=== PATIENT | male | born 1955 | race Caucasian/White ===

== ENCOUNTER 2024-12-13 06:08 | Inpatient (IN) | payer OTHER, MEDICARE ==
[2024-12-13] MEDS ORDERED: VANCOMYCIN 1,000 MG VIAL (RESTRICTED TO ID ONLY) ONE (07:22)
[2024-12-13] MEDS ORDERED: TRANEXAMIC ACID 1000 MG/10 ML VIAL ONE ×3 (07:22→15:06)
[2024-12-13] MEDS ORDERED: FENTANYL CITRATE/PF 50 MCG/ML VIAL ONE (07:23)
[2024-12-13] MEDS ORDERED: MIDAZOLAM HCL 2 MG/2 ML SINGLE DOSE VIAL ONE (07:23)
[2024-12-13] MEDS ORDERED: ROPIVACAINE HCL/PF 100 MG/20 ML VIAL ONE (07:25)
[2024-12-13 07:38] LABS: ABSOLUTE IMMATURE GRANULOCYTES 0.03 x10^3/uL (0.0-0.031); BASOPHILS # 0.07 x10^3/uL (0.01-0.08); EOSINOPHIL % 7.3 % (0.8-7.0); EOSINOPHILS # 0.45 x10^3/uL (0.04-0.54); HEMATOCRIT 40.6 % (40.1-51.0); HEMOGLOBIN 13.3 g/dL (13.7-17.5); MCHC 32.8 g/dl (32.3-36.5); MEAN CELL VOLUME 88.5 fl (79.0-92.2); MEAN PLT VOLUME 11.4 fl (9.4-12.4); MONOCYTE # 0.58 x10^3/uL (0.30-0.82); MONOCYTE % 9.5 % (5.3-12.2); PLATELET COUNT 200 x10^3/uL (163-337); RDW 14.1 % (12.2-16.4)
[2024-12-13] MEDS ORDERED: ROCURONIUM BROMIDE 50 MG/5 ML SYRINGE ONE ×5 (07:56→14:32)
[2024-12-13] MEDS ORDERED: ETOMIDATE 20 MG/10 ML VIAL IVPUSH ONE (07:56)
[2024-12-13] MEDS ORDERED: SUCCINYLCHOLINE CHLORIDE 200 MG/10 ML SYRINGE ONE (07:56)
[2024-12-13] MEDS ORDERED: BACITRACIN ZINC 15 GM TUBE TOPICAL OINTMENT ONE (08:42)
[2024-12-13 08:45] LABS: ALBUMIN 3.7 g/dl (3.4-5.0); ALK PHOS 73 U/L (45-117); ANION GAP 9 mmol/L (4-13); BILIRUBIN,TOTAL 0.4 mg/dl (0.2-1); CHLORIDE 102 mmol/L (98-107); CO2 31 mmol/L (21-32); GLUCOSE,RANDOM 78 mg/dl (74-106); POTASSIUM 3.4 mmol/L (3.5-5.1); SGOT/AST 14 U/L (15-37); SGPT/ALT 13 U/L (7-52); SODIUM 142 mmol/L (136-145); TOT PROT 5.6 g/dl (6.4-8.2)
[2024-12-13 08:50] LABS: ERYTHROCYTE SEDIMENTATION RATE 11 mm/hr (0-20)
[2024-12-13] MEDS ORDERED: oxyCODONE HCL 5 MG TABLET PO PRN ×3 (09:57→18:25)
[2024-12-13] MEDS ORDERED: ONDANSETRON 4 MG/2 ML VIAL IVPUSH PRN ×3 (09:57→18:25)
[2024-12-13] MEDS ORDERED: CLINDAMYCIN PHOSPHATE 600 MG/4 ML VIAL ONE (12:15)
[2024-12-13] MEDS ORDERED: PHENYLEPHRINE HCL 10 MG/1 ML SINGLE DOSE VIAL ONE (12:24)
[2024-12-13] MEDS ORDERED: SUGAMMADEX SODIUM 200 MG/2 ML VIAL ONE ×2 (12:45→16:11)
[2024-12-13] MEDS ORDERED: SEVOFLURANE 250 ML BTL ONE (12:50)
[2024-12-13] MEDS ORDERED: DEXAMETHASONE SOD PHOSPHATE 4 MG/1 ML VIAL ONE (13:08)
[2024-12-13] MEDS ORDERED: ONDANSETRON 4 MG/2 ML VIAL ONE (14:57)
[2024-12-13] MEDS ORDERED: CALCIUM CHLORIDE 1 GM/10 ML *DISP.SYRIN ONE (15:13)
[2024-12-13] MEDS ORDERED: PROPOFOL 20 ML ONE (15:37)
[2024-12-13] MEDS ORDERED: MAG HYDROX/AL HYDROX/SIMETH 30 ML UNIT-DOSE CUP PO PRN ×2 (16:42→18:25)
[2024-12-13] MEDS ORDERED: LACTATED RINGERS SOLUTION 1,000 ML IV SCH (16:45)
[2024-12-13] MEDS ORDERED: ACETAMINOPHEN 1000 MG/100 ML BAG IVPB SCH (17:15)
[2024-12-13 17:54] LABS: ALBUMIN 2.5 g/dl (3.4-5.0); BILIRUBIN,TOTAL 0.3 mg/dl (0.2-1); CALCIUM 8.4 mg/dl (8.5-10.1); CREATININE 0.9 mg/dl (0.6-1.3); HEMATOCRIT 32.8 % (40.1-51.0); HEMOGLOBIN 10.6 g/dL (13.7-17.5); MCHC 32.3 g/dl (32.3-36.5); MEAN CELL VOLUME 90.4 fl (79.0-92.2); MEAN PLT VOLUME 11.5 fl (9.4-12.4); PLATELET COUNT 248 x10^3/uL (163-337); POTASSIUM 4.1 mmol/L (3.5-5.1); RDW 14.3 % (12.2-16.4); TOT PROT 3.9 g/dl (6.4-8.2)
[2024-12-13] MEDS ORDERED: PHENYLEPHRINE NS PREMIX 50,000 MCG/500 ML BAG IVPB SCH (18:30)
[2024-12-13] MEDS: NOREPINEPHRINE 0.9 % NACL 8 MG/250 ML BAG IVPB SCH (19:55)
[2024-12-13] MEDS: LACTATED RINGERS SOLUTION 1,000 ML IV SCH (19:55)
[2024-12-13] MEDS: oxyCODONE HCL 5 MG TABLET PO PRN (20:28)
[2024-12-13] MEDS ORDERED: CLINDAMYCIN 600MG PREMIX IVPB 600 MG/50 ML BAG IVPB SCH (21:00)
[2024-12-13] MEDS ORDERED: CLINDAMYCIN 900 MG PREMIX IVPB 900 MG/50 ML BAG IVPB SCH (21:00)
[2024-12-13] MEDS: CHLORHEXIDINE GLUCONATE 4% CLEANSER FOR DECOLONIZATION TP SCH (21:55)
[2024-12-13] MEDS: CLINDAMYCIN 900 MG PREMIX IVPB 900 MG/50 ML BAG IVPB SCH (21:55)
[2024-12-13] MEDS: MUPIROCIN 2% TOPICAL OINTMENT FOR DECOLONIZATION NS SCH (21:55)
[2024-12-13] MEDS: SENNOSIDES/DOCUSATE COMBO (SENNA PLUS) TABLET (UD) PO SCH (21:56)
[2024-12-13] MEDS ORDERED: SENNOSIDES/DOCUSATE COMBO (SENNA PLUS) TABLET (UD) PO SCH (22:00)
[2024-12-14] MEDS: ACETAMINOPHEN 1000 MG/100 ML BAG IVPB SCH (00:10)
[2024-12-14 02:38] VITALS: BMI 36.0
[2024-12-14] MEDS: MIDODRINE HCL 5 MG TABLET PO SCH (05:58)
[2024-12-14 06:45] LABS: HEMATOCRIT 30.8 % (40.1-51.0); HEMOGLOBIN 9.8 g/dL (13.7-17.5); MCHC 31.8 g/dl (32.3-36.5); PLATELET COUNT 204 x10^3/uL (163-337); RDW 14.3 % (12.2-16.4)
[2024-12-14] MEDS: PHENYLEPHRINE HCL 10 MG/1 ML SINGLE DOSE VIAL ONE (06:54)
[2024-12-14 07:16] LABS: BLOOD UREA NITROGEN 17.7 mg/dL (7-18); CALCIUM 8.7 mg/dL (8.5-10.1)
[2024-12-14 07:20] LABS: CREATININE 0.9 mg/dL (0.55-1.3)
[2024-12-14 07:24] LABS: LACTIC ACID 3.2 mmol/L (0.4-2.0)
[2024-12-14] MEDS: LACTATED RINGERS SOLUTION 1,000 ML/1,000 ML INFUS.BAG IV SCH (08:21)
[2024-12-14 08:25] LABS: ALBUMIN 2.4 g/dl (3.4-5.0)
[2024-12-14 08:30] LABS: BILIRUBIN,TOTAL 0.3 mg/dL (0.2-1); TOT PROT 4.6 g/dl (6.4-8.2)
[2024-12-14] MEDS: PANTOPRAZOLE 40 MG TABLET PO SCH (09:30)
[2024-12-14] MEDS: DULoxetine HCL 20 MG CAPSULE.DR PO SCH (09:30)
[2024-12-14] MEDS: BACITRACIN ZINC 15 GM TUBE TOPICAL OINTMENT TP SCH (09:30)
[2024-12-14] MEDS: MULTIVITAMINS (DAILY MVI) TABLET (FP) PO SCH (09:30)
[2024-12-14] MEDS: PREGABALIN 100 MG CAPSULE PO ONE (09:47)
[2024-12-14] MEDS ORDERED: ASPIRIN 325 MG TABLET PO SCH ×2 (10:00)
[2024-12-14] MEDS ORDERED: PANTOPRAZOLE 40 MG TABLET PO SCH (10:00)
[2024-12-14] MEDS ORDERED: MULTIVITAMINS (DAILY MVI) TABLET (FP) PO SCH (10:00)
[2024-12-14 12:30] LABS: LACTIC ACID 3.8 mmol/L (0.4-2.0)
[2024-12-14] MEDS: TAMSULOSIN HCL 0.4 MG CAP PO SCH (13:34)
[2024-12-14] MEDS: PREGABALIN 100 MG CAPSULE PO SCH (15:35)
[2024-12-14] MEDS ORDERED: ACETAMINOPHEN 1000 MG/100 ML BAG IVPB PRN (19:51)
[2024-12-14 21:23] LABS: LACTIC ACID 2.5 mmol/L (0.4-2.0)
[2024-12-14] MEDS: oxyCODONE HCL 5 MG TABLET PO PRN (22:11)
[2024-12-15] MEDS: HYDROmorphone HCL CARPU-JECT 2 MG/1 ML DISP.SYRIN IVPUSH PRN ×2 (01:44→13:26)
[2024-12-15 06:39] LABS: ABSOLUTE IMMATURE GRANULOCYTES 0.08 x10^3/uL (0.0-0.031); BASOPHILS # 0.02 x10^3/uL (0.01-0.08); EOSINOPHIL % 0.6 % (0.8-7.0); EOSINOPHILS # 0.07 x10^3/uL (0.04-0.54); HEMOGLOBIN 7.4 g/dL (13.7-17.5); MCHC 32.2 g/dl (32.3-36.5); MEAN CELL VOLUME 89.1 fl (79.0-92.2); MEAN PLT VOLUME 11.5 fl (9.4-12.4); PLATELET COUNT 155 x10^3/uL (163-337); RDW 14.5 % (12.2-16.4)
[2024-12-15 07:04] LABS: POTASSIUM 3.8 mmol/L (3.5-5.1)
[2024-12-15 07:10] LABS: ALBUMIN 2.1 g/dl (3.4-5.0); BLOOD UREA NITROGEN 16.3 mg/dL (7-18); CALCIUM 7.9 mg/dL (8.5-10.1)
[2024-12-15 07:12] LABS: MAGNESIUM 1.3 mg/dL (1.8-2.4)
[2024-12-15 07:13] LABS: BILIRUBIN,TOTAL 0.3 mg/dL (0.2-1); CREATININE 0.8 mg/dL (0.55-1.3); TOT PROT 4.1 g/dl (6.4-8.2)
[2024-12-15 07:15] LABS: PHOSPHOROUS 2.7 mg/dL (2.5-4.9)
[2024-12-15] MEDS: CLINDAMYCIN 900 MG PREMIX IVPB 900 MG/50 ML BAG IVPB SCH ×2 (09:26→18:46)
[2024-12-15] MEDS ORDERED: ASPIRIN 325 MG ENTERIC COATED TABLET (FP) PO SCH (10:00)
[2024-12-15] MEDS ORDERED: CLINDAMYCIN 900 MG PREMIX IVPB 900 MG/50 ML BAG IVPB SCH (10:00)
[2024-12-15] MEDS ORDERED: MAG HYDROX/AL HYDROX/SIMETH 30 ML UNIT-DOSE CUP PO PRN (12:31)
[2024-12-15] MEDS ORDERED: ACETAMINOPHEN 1000 MG/100 ML BAG IVPB PRN (12:31)
[2024-12-15] MEDS ORDERED: ONDANSETRON 4 MG/2 ML VIAL IVPUSH PRN (12:31)
[2024-12-15] MEDS: LACTATED RINGERS SOLUTION 1,000 ML/1,000 ML INFUS.BAG IV SCH (13:11)
[2024-12-15] MEDS: MAGNESIUM 2GM/50ML STERILE WATER IVPB IVPB ONE (13:12)
[2024-12-15] MEDS: oxyCODONE HCL 5 MG TABLET PO PRN (16:30)
[2024-12-15] MEDS: PREGABALIN 100 MG CAPSULE PO SCH (16:31)
[2024-12-15] MEDS: MIDODRINE HCL 5 MG TABLET PO SCH (16:31)
[2024-12-15] MEDS: SENNOSIDES/DOCUSATE COMBO (SENNA PLUS) TABLET (UD) PO SCH (21:22)
[2024-12-15] MEDS: DULoxetine HCL 20 MG CAPSULE.DR PO SCH (21:22)
[2024-12-15] MEDS: TAMSULOSIN HCL 0.4 MG CAP PO SCH (21:22)
[2024-12-15] MEDS: ACETAMINOPHEN 325 MG TABLET (FP) PO ONE (21:23)
[2024-12-15] MEDS ORDERED: CHLORHEXIDINE GLUCONATE 4% CLEANSER FOR DECOLONIZATION TP SCH (22:00)
[2024-12-15 23:42] LABS: POTASSIUM 3.7 mmol/L (3.5-5.1)
[2024-12-15 23:44] LABS: CALCIUM 8.1 mg/dL (8.5-10.1)
[2024-12-15 23:48] LABS: CREATININE 0.8 mg/dL (0.55-1.3)
[2024-12-15 23:49] LABS: BILIRUBIN,TOTAL 0.4 mg/dL (0.2-1)
[2024-12-16 01:32] LABS: URINE APPEARANCE CLEAR; URINE BILIRUBIN NEGATIVE (NEGATIVE); URINE COLOR YELLOW; URINE GLUCOSE (UA) NEGATIVE (NEGATIVE); URINE KETONE NEGATIVE (NEGATIVE); URINE LEUK ESTERASE NEGATIVE (NEGATIVE); URINE NITRITE NEGATIVE (NEGATIVE); URINE PROTEIN NEGATIVE (NEGATIVE); URINE UROBILINOGEN 0.2 mg/dL (0.2-1.0)
[2024-12-16] MEDS ORDERED: ACETAMINOPHEN 325 MG TABLET (FP) PO SCH (07:30)
[2024-12-16] MEDS: ACETAMINOPHEN 325 MG TABLET (FP) PO SCH (07:58)
[2024-12-16 08:10] LABS: ABSOLUTE IMMATURE GRANULOCYTES 0.07 x10^3/uL (0.0-0.031); BASOPHILS # 0.04 x10^3/uL (0.01-0.08); EOSINOPHIL % 1.9 % (0.8-7.0); EOSINOPHILS # 0.15 x10^3/uL (0.04-0.54); HEMATOCRIT 22.2 % (40.1-51.0); HEMOGLOBIN 7.3 g/dL (13.7-17.5); MCHC 32.9 g/dl (32.3-36.5); MEAN CELL VOLUME 85.4 fl (79.0-92.2); MEAN PLT VOLUME 11.6 fl (9.4-12.4); MONOCYTE % 12.7 % (5.3-12.2); PLATELET COUNT 149 x10^3/uL (163-337); RDW 15.6 % (12.2-16.4)
[2024-12-16 08:29] LABS: POTASSIUM 3.7 mmol/L (3.5-5.1)
[2024-12-16 08:30] LABS: CALCIUM 7.9 mg/dL (8.5-10.1)
[2024-12-16] MEDS ORDERED: ACETAMINOPHEN 500 MG TABLET (FP) PO SCH (08:30)
[2024-12-16 08:31] LABS: BLOOD UREA NITROGEN 18.2 mg/dL (7-18)
[2024-12-16 08:36] LABS: CREATININE 0.7 mg/dL (0.55-1.3)
[2024-12-16] MEDS: BACITRACIN ZINC 15 GM TUBE TOPICAL OINTMENT TP SCH (09:58)
[2024-12-16] MEDS: ASPIRIN 325 MG ENTERIC COATED TABLET (FP) PO SCH (09:58)
[2024-12-16] MEDS: MULTIVITAMINS (DAILY MVI) TABLET (FP) PO SCH (09:59)
[2024-12-16] MEDS: PANTOPRAZOLE 40 MG TABLET PO SCH (09:59)
[2024-12-16 15:10] LABS: HEMATOCRIT 23.4 % (40.1-51.0); HEMOGLOBIN 7.7 g/dL (13.7-17.5); MCHC 32.9 g/dl (32.3-36.5); MEAN CELL VOLUME 85.7 fl (79.0-92.2); MEAN PLT VOLUME 11.3 fl (9.4-12.4); PLATELET COUNT 164 x10^3/uL (163-337); RDW 15.6 % (12.2-16.4)
[2024-12-16] MEDS: ACETAMINOPHEN 500 MG TABLET (FP) PO SCH (17:01)
[2024-12-16] MEDS: MIDODRINE HCL 5 MG TABLET PO SCH (18:09)
[2024-12-16] MEDS: ATORVASTATIN CA 40 MG TABLET (FP) PO SCH (21:18)
[2024-12-16] MEDS: DULoxetine HCL 30 MG CAPSULE.DR PO SCH (21:18)
[2024-12-16 21:20] VITALS: RESP 18
[2024-12-17] MEDS: MELATONIN 5 MG TABLETS PO PRN (03:37)
[2024-12-17 08:35] LABS: HEMATOCRIT 21.6 % (40.1-51.0); MCHC 32.4 g/dl (32.3-36.5); MEAN CELL VOLUME 86.1 fl (79.0-92.2); MEAN PLT VOLUME 11.3 fl (9.4-12.4); PLATELET COUNT 180 x10^3/uL (163-337); RDW 15.3 % (12.2-16.4)
[2024-12-17 09:01] LABS: POTASSIUM 3.4 mmol/L (3.5-5.1)
[2024-12-17] MEDS: MIDODRINE HCL 5 MG TABLET PO SCH (09:05)
[2024-12-17 09:14] LABS: ALBUMIN 1.9 g/dl (3.4-5.0)
[2024-12-17 09:16] LABS: CREATININE 0.7 mg/dL (0.55-1.3); PHOSPHOROUS 3.2 mg/dL (2.5-4.9)
[2024-12-17 09:20] LABS: BILIRUBIN,TOTAL 0.4 mg/dL (0.2-1); TOT PROT 4.1 g/dl (6.4-8.2)
[2024-12-17] MEDS: POTASSIUM CHLORIDE ORAL LIQUID 20 MEQ/15 ML PO ONE (13:16)
[2024-12-17] MEDS ORDERED: MAGNESIUM CITRATE 300 ML BOTTLE PO ONE (15:06)
[2024-12-17 16:40] LABS: HEMATOCRIT 23.3 % (40.1-51.0); HEMOGLOBIN 7.4 g/dL (13.7-17.5); MCHC 31.8 g/dl (32.3-36.5); MEAN CELL VOLUME 88.9 fl (79.0-92.2); MEAN PLT VOLUME 10.9 fl (9.4-12.4); PLATELET COUNT 208 x10^3/uL (163-337); RDW 15.1 % (12.2-16.4)
[2024-12-17] MEDS: MAGNESIUM CITRATE 300 ML BOTTLE PO ONE (17:11)
[2024-12-17] MEDS: hydrOXYzine PAMOATE 25 MG CAPSULE (FP) PO ONE (23:28)
[2024-12-18 08:34] LABS: HEMATOCRIT 25.2 % (40.1-51.0); HEMOGLOBIN 8.4 g/dL (13.7-17.5); MCHC 33.3 g/dl (32.3-36.5); MEAN CELL VOLUME 85.4 fl (79.0-92.2); MEAN PLT VOLUME 11.1 fl (9.4-12.4); PLATELET COUNT 231 x10^3/uL (163-337)
[2024-12-18 08:52] LABS: POTASSIUM 4.1 mmol/L (3.5-5.1)
[2024-12-18 08:55] LABS: ALBUMIN 2.1 g/dl (3.4-5.0); BLOOD UREA NITROGEN 16.8 mg/dL (7-18)
[2024-12-18 08:58] LABS: CREATININE 0.6 mg/dL (0.55-1.3)
[2024-12-18 08:59] LABS: BILIRUBIN,TOTAL 0.5 mg/dL (0.2-1)
[2024-12-18 09:00] LABS: TOT PROT 4.4 g/dl (6.4-8.2)
[2024-12-18 09:02] VITALS: BP 148/79; PULSE 76; TEMP 98.8
== END 2024-12-18 14:50 | DRG 483 ==
LOC: FASUSAT 06:08 → JICU 18:09 → J6S 12-15 12:17
PROVIDERS: ADMIT Internal Medicine Pulmonary Disease; ATTEND Internal Medicine
PROC: 0RPJ0J6 Removal of Synthetic Substitute from Right Shoulder Joint, Humeral Surface, Open Approach (ICD-10-PCS; 2024-12-13)
PROC: 0RRJ00Z Replacement of Right Shoulder Joint with Reverse Ball and Socket Synthetic Substitute, Open Approach (ICD-10-PCS; principal; 2024-12-13 09:33)
PROC: 30233N1 Transfusion of Nonautologous Red Blood Cells into Peripheral Vein, Percutaneous Approach (ICD-10-PCS; 2024-12-15)
PROC: 02HV33Z Insertion of Infusion Device into Superior Vena Cava, Percutaneous Approach (ICD-10-PCS; 2024-12-17)
PROC: B518ZZA Fluoroscopy of Superior Vena Cava, Guidance (ICD-10-PCS; 2024-12-17)
DX: S42.291K Other displaced fracture of upper end of right humerus, subsequent encounter for fracture with nonunion (principal); T81.19XA Other postprocedural shock, initial encounter; D62 Acute posthemorrhagic anemia; F11.20 Opioid dependence, uncomplicated; E87.20 Acidosis, unspecified; M19.011 Primary osteoarthritis, right shoulder; I95.81 Postprocedural hypotension; E66.9 Obesity, unspecified; Z68.36 Body mass index [BMI] 36.0-36.9, adult; N40.1 Benign prostatic hyperplasia with lower urinary tract symptoms; R33.8 Other retention of urine; I10 Essential (primary) hypertension; X58.XXXD Exposure to other specified factors, subsequent encounter; Z96.652 Presence of left artificial knee joint; Y83.8 Other surgical procedures as the cause of abnormal reaction of the patient, or of later complication, without mention of misadventure at the time of the procedure; D69.6 Thrombocytopenia, unspecified; R50.9 Fever, unspecified
CPT/HCPCS: 0241U-QW; 36415; 36430; 36569; 73030-TC-RT-FY; 80048; 80053; 81003; 83010; 83605; 83735; 84100; 85025; 85027; 85651; 86078; 86140; 86850; 86900; 86901; 86922; 87040; 87070; 87075; 87205; 88300-TC; 88304-TC; 88331-TC; 94760; 97116-GP; 97163-GP; C1713; C1776; J0131; J0878; P9058

== ENCOUNTER 2024-12-22 11:57 | Inpatient (IN) | payer OTHER, MEDICARE ==
[2024-12-22 13:36] LABS: ABSOLUTE IMMATURE GRANULOCYTES 0.21 x10^3/uL (0.0-0.031); BASOPHILS # 0.07 x10^3/uL (0.01-0.08); EOSINOPHILS # 0.58 x10^3/uL (0.04-0.54); HEMATOCRIT 27.4 % (40.1-51.0); HEMOGLOBIN 8.8 g/dL (13.7-17.5); INR 1.1 (0.83-1.09); MCHC 32.1 g/dl (32.3-36.5); MEAN CELL VOLUME 88.1 fl (79.0-92.2); MEAN PLT VOLUME 9.8 fl (9.4-12.4); MONOCYTE # 0.79 x10^3/uL (0.30-0.82); MONOCYTE % 8.2 % (5.3-12.2); PLATELET COUNT 380 x10^3/uL (163-337); PROTHROMBIN TIME (PATIENT) 12.2 SEC (9.7-13.0); RDW 14.9 % (12.2-16.4)
[2024-12-22 13:46] LABS: ALBUMIN 3.2 g/dl (3.4-5.0); BILIRUBIN,TOTAL 0.4 mg/dl (0.2-1); CALCIUM 8.6 mg/dl (8.5-10.1); CREATININE 0.8 mg/dl (0.6-1.3); POTASSIUM 4.1 mmol/L (3.5-5.1); TOT PROT 5.1 g/dl (6.4-8.2)
[2024-12-22 17:40] VITALS: BMI 40.0
[2024-12-22] MEDS ORDERED: CLINDAMYCIN 900 MG PREMIX IVPB 900 MG/50 ML BAG IVPB SCH (21:30)
[2024-12-22] MEDS: oxyCODONE HCL 5 MG TABLET PO PRN (21:36)
[2024-12-22] MEDS: DULoxetine HCL 30 MG CAPSULE.DR PO SCH (22:50)
[2024-12-22] MEDS: PREGABALIN 100 MG CAPSULE PO SCH (22:50)
[2024-12-22] MEDS: ACETAMINOPHEN 500 MG TABLET (FP) PO SCH (22:50)
[2024-12-22] MEDS: ATORVASTATIN CA 40 MG TABLET (FP) PO SCH (22:50)
[2024-12-22] MEDS: ZOLPIDEM TARTRATE 5 MG TABLET PO PRN (22:51)
[2024-12-23] MEDS: CLINDAMYCIN 900 MG PREMIX IVPB 900 MG/50 ML BAG IVPB SCH (01:13)
[2024-12-23 07:49] LABS: ABSOLUTE IMMATURE GRANULOCYTES 0.12 x10^3/uL (0.0-0.031); BASOPHILS # 0.07 x10^3/uL (0.01-0.08); EOSINOPHIL % 7.7 % (0.8-7.0); EOSINOPHILS # 0.57 x10^3/uL (0.04-0.54); HEMATOCRIT 25.7 % (40.1-51.0); HEMOGLOBIN 8.2 g/dL (13.7-17.5); MCHC 31.9 g/dl (32.3-36.5); MEAN CELL VOLUME 88.9 fl (79.0-92.2); MEAN PLT VOLUME 9.7 fl (9.4-12.4); MONOCYTE # 0.73 x10^3/uL (0.30-0.82); MONOCYTE % 9.8 % (5.3-12.2); PLATELET COUNT 377 x10^3/uL (163-337); RDW 14.9 % (12.2-16.4)
[2024-12-23 08:35] LABS: CALCIUM 8.3 mg/dl (8.5-10.1); CREATININE 0.9 mg/dl (0.6-1.3); POTASSIUM 3.8 mmol/L (3.5-5.1)
[2024-12-23] MEDS: POTASSIUM CHLORIDE TABS 10 MEQ TABLET.ER (FP) PO SCH (10:08)
[2024-12-23] MEDS: FUROSEMIDE 40 MG TABLET (FP) PO SCH (10:08)
[2024-12-23] MEDS: SODIUM CHLORIDE 1,000 ML IV SCH (23:25)
[2024-12-24] MEDS: CLINDAMYCIN 900 MG PREMIX IVPB 900 MG/50 ML BAG IVPB ONE (02:19)
[2024-12-24 07:42] LABS: HEMATOCRIT 28.1 % (40.1-51.0); MEAN CELL VOLUME 88.9 fl (79.0-92.2); MEAN PLT VOLUME 9.7 fl (9.4-12.4); PLATELET COUNT 397 x10^3/uL (163-337); RDW 15.3 % (12.2-16.4)
[2024-12-24] MEDS ORDERED: VANCOMYCIN 1,000 MG VIAL (RESTRICTED TO ID ONLY) ONE (08:36)
[2024-12-24] MEDS ORDERED: TRANEXAMIC ACID 1000 MG/10 ML VIAL ONE ×2 (08:36→14:38)
[2024-12-24] MEDS ORDERED: EPINEPHrine 1:1,000 1,000 MCG/ML ML ONE (08:36)
[2024-12-24 10:07] LABS: BILIRUBIN,TOTAL 0.4 mg/dl (0.2-1); CALCIUM 8.5 mg/dl (8.5-10.1); CREATININE 0.9 mg/dl (0.6-1.3); POTASSIUM 3.9 mmol/L (3.5-5.1); TOT PROT 4.7 g/dl (6.4-8.2)
[2024-12-24] MEDS ORDERED: SEVOFLURANE 250 ML BTL ONE (10:32)
[2024-12-24] MEDS ORDERED: PROPOFOL 40 ML ONE (10:32)
[2024-12-24] MEDS ORDERED: MIDAZOLAM HCL 2 MG/2 ML SINGLE DOSE VIAL ONE ×2 (10:32→11:59)
[2024-12-24] MEDS ORDERED: ROCURONIUM BROMIDE 50 MG/5 ML SYRINGE ONE ×2 (10:32→13:28)
[2024-12-24] MEDS ORDERED: DEXAMETHASONE SOD PHOSPHATE 4 MG/1 ML VIAL ONE ×2 (10:33→10:37)
[2024-12-24] MEDS ORDERED: ONDANSETRON 4 MG/2 ML VIAL ONE (10:33)
[2024-12-24] MEDS ORDERED: ROPIVACAINE HCL/PF 100 MG/20 ML VIAL ONE ×2 (10:39→11:24)
[2024-12-24] MEDS ORDERED: CLINDAMYCIN PHOSPHATE 600 MG/4 ML VIAL ONE ×2 (12:04→12:05)
[2024-12-24] MEDS ORDERED: PHENYLEPHRINE HCL 10 MG/1 ML SINGLE DOSE VIAL ONE (12:26)
[2024-12-24 14:41] LABS: INR 1.12 (0.83-1.09); PROTHROMBIN TIME (PATIENT) 12.4 SEC (9.7-13.0)
[2024-12-24 14:56] LABS: HEMATOCRIT 33.4 % (40.1-51.0); HEMOGLOBIN 10.8 g/dL (13.7-17.5); MCHC 32.3 g/dl (32.3-36.5); MEAN PLT VOLUME 9.8 fl (9.4-12.4); PLATELET COUNT 400 x10^3/uL (163-337); RDW 15.1 % (12.2-16.4)
[2024-12-24] MEDS ORDERED: SUGAMMADEX SODIUM 200 MG/2 ML VIAL ONE (15:43)
[2024-12-24] MEDS ORDERED: ONDANSETRON 4 MG/2 ML VIAL IVPUSH PRN (16:11)
[2024-12-24] MEDS ORDERED: PROMETHAZINE HCL 25 MG/1 ML VIAL IVPB PRN (16:11)
[2024-12-24] MEDS ORDERED: oxyCODONE HCL 5 MG TABLET PO PRN (16:11)
[2024-12-24] MEDS ORDERED: ACETAMINOPHEN INJECTION 100 ML ONE (16:21)
[2024-12-24] MEDS: ACETAMINOPHEN 500 MG TABLET (FP) PO SCH (16:40)
[2024-12-24] MEDS: LACTATED RINGERS SOLUTION 1,000 ML IV SCH (16:40)
[2024-12-24] MEDS ORDERED: CLINDAMYCIN 900 MG IV SCH (18:00)
[2024-12-24] MEDS ORDERED: PATIENT'S OWN MEDICATION (NON-FORMULARY) (Oxycodone Hcl [Oxycodone Hcl] 10 MG Tablet) PO SCH (18:00)
[2024-12-24] MEDS: CLINDAMYCIN 900 MG PREMIX BAG IVPB SCH (18:27)
[2024-12-24] MEDS: oxyCODONE HCL 5 MG TABLET PO PRN (20:25)
[2024-12-24 22:09] LABS: HEMATOCRIT 29.1 % (40.1-51.0); HEMOGLOBIN 9.6 g/dL (13.7-17.5); MEAN CELL VOLUME 86.4 fl (79.0-92.2); MEAN PLT VOLUME 9.7 fl (9.4-12.4); PLATELET COUNT 375 x10^3/uL (163-337); RDW 15.6 % (12.2-16.4)
[2024-12-24] MEDS: KETOROLAC TROMETHAMINE 30 MG/1 ML VIAL IVPUSH SCH (23:07)
[2024-12-25 08:21] LABS: ABSOLUTE IMMATURE GRANULOCYTES 0.38 x10^3/uL (0.0-0.031); BASOPHILS # 0.02 x10^3/uL (0.01-0.08); HEMATOCRIT 27.8 % (40.1-51.0); HEMOGLOBIN 9.3 g/dL (13.7-17.5); MCHC 33.5 g/dl (32.3-36.5); MEAN CELL VOLUME 86.1 fl (79.0-92.2); MONOCYTE # 0.94 x10^3/uL (0.30-0.82); MONOCYTE % 5.5 % (5.3-12.2); PLATELET COUNT 367 x10^3/uL (163-337); RDW 16.1 % (12.2-16.4)
[2024-12-25] MEDS: oxyCODONE HCL 5 MG TABLET PO PRN (08:37)
[2024-12-25 08:56] LABS: ALBUMIN 2.8 g/dl (3.4-5.0); BILIRUBIN,TOTAL 0.3 mg/dl (0.2-1); CALCIUM 8.2 mg/dl (8.5-10.1); CREATININE 1.1 mg/dl (0.6-1.3); POTASSIUM 4.4 mmol/L (3.5-5.1); TOT PROT 4.3 g/dl (6.4-8.2)
[2024-12-25] MEDS: ALLOPURINOL 100 MG TABLET (FP) PO SCH (09:28)
[2024-12-25] MEDS: ASPIRIN COATED 81 MG TABLET.EC PO SCH (09:29)
[2024-12-25] MEDS: ACETAMINOPHEN 1000 MG/100 ML BAG IVPB PRN (09:55)
[2024-12-26 09:32] LABS: ABSOLUTE IMMATURE GRANULOCYTES 0.42 x10^3/uL (0.0-0.031); BASOPHILS # 0.08 x10^3/uL (0.01-0.08); EOSINOPHIL % 4.4 % (0.8-7.0); EOSINOPHILS # 0.59 x10^3/uL (0.04-0.54); HEMOGLOBIN 9.6 g/dL (13.7-17.5); MEAN CELL VOLUME 86.2 fl (79.0-92.2); MEAN PLT VOLUME 9.5 fl (9.4-12.4); MONOCYTE # 1.11 x10^3/uL (0.30-0.82); MONOCYTE % 8.3 % (5.3-12.2); PLATELET COUNT 378 x10^3/uL (163-337); RDW 16.9 % (12.2-16.4)
[2024-12-26 09:45] LABS: CALCIUM 8.2 mg/dl (8.5-10.1); POTASSIUM 3.7 mmol/L (3.5-5.1)
[2024-12-27 07:53] LABS: HEMATOCRIT 30.3 % (40.1-51.0); HEMOGLOBIN 9.8 g/dL (13.7-17.5); MCHC 32.3 g/dl (32.3-36.5); MEAN CELL VOLUME 88.1 fl (79.0-92.2); MEAN PLT VOLUME 9.6 fl (9.4-12.4); PLATELET COUNT 371 x10^3/uL (163-337); RDW 16.4 % (12.2-16.4)
[2024-12-27 09:59] LABS: ALBUMIN 3.3 g/dl (3.4-5.0); BILIRUBIN,TOTAL 0.4 mg/dl (0.2-1); CALCIUM 8.3 mg/dl (8.5-10.1); POTASSIUM 3.9 mmol/L (3.5-5.1)
[2024-12-27] MEDS: FUROSEMIDE 40 MG/4 ML INJECTABLE VIAL IVPUSH ONE (16:09)
[2024-12-28 06:42] VITALS: PULSE 72; RESP 18
[2024-12-28 08:05] LABS: ABSOLUTE IMMATURE GRANULOCYTES 0.29 x10^3/uL (0.0-0.031); BASOPHILS # 0.07 x10^3/uL (0.01-0.08); EOSINOPHIL % 6.9 % (0.8-7.0); EOSINOPHILS # 0.64 x10^3/uL (0.04-0.54); HEMATOCRIT 29.5 % (40.1-51.0); HEMOGLOBIN 9.4 g/dL (13.7-17.5); MCHC 31.9 g/dl (32.3-36.5); MEAN CELL VOLUME 88.9 fl (79.0-92.2); MEAN PLT VOLUME 9.9 fl (9.4-12.4); MONOCYTE # 0.81 x10^3/uL (0.30-0.82); MONOCYTE % 8.8 % (5.3-12.2); PLATELET COUNT 361 x10^3/uL (163-337); RDW 16.2 % (12.2-16.4)
[2024-12-28 08:54] LABS: ALBUMIN 3.2 g/dl (3.4-5.0); BILIRUBIN,TOTAL 0.4 mg/dl (0.2-1); CALCIUM 8.2 mg/dl (8.5-10.1); POTASSIUM 3.7 mmol/L (3.5-5.1); TOT PROT 4.8 g/dl (6.4-8.2)
[2024-12-28] MEDS: CHOLECALCIFEROL (VIT D3) 1,000 UNIT (25 MCG) TABLET PO SCH (09:20)
[2024-12-28] MEDS: oxyCODONE HCL 5 MG TABLET PO ONE (10:02)
[2024-12-28 10:21] VITALS: BP 111/66; TEMP 98.1
== END 2024-12-28 10:50 | DRG 483 ==
LOC: FER 11:57 → FM/S 14:32
PROVIDERS: ATTEND Internal Medicine
PROC: 30233N1 Transfusion of Nonautologous Red Blood Cells into Peripheral Vein, Percutaneous Approach (ICD-10-PCS; 2024-12-23)
PROC: 0RPJ0J6 Removal of Synthetic Substitute from Right Shoulder Joint, Humeral Surface, Open Approach (ICD-10-PCS; 2024-12-24)
PROC: 0RRJ0J6 Replacement of Right Shoulder Joint with Synthetic Substitute, Humeral Surface, Open Approach (ICD-10-PCS; principal; 2024-12-24 12:29)
DX: T84.028A Dislocation of other internal joint prosthesis, initial encounter (principal); I50.30 Unspecified diastolic (congestive) heart failure; S42.291K Other displaced fracture of upper end of right humerus, subsequent encounter for fracture with nonunion; Z68.41 Body mass index [BMI] 40.0-44.9, adult; M97.41XA Periprosthetic fracture around internal prosthetic right elbow joint, initial encounter; E66.01 Morbid (severe) obesity due to excess calories; I10 Essential (primary) hypertension; E78.5 Hyperlipidemia, unspecified; D64.9 Anemia, unspecified; M25.511 Pain in right shoulder; N40.0 Benign prostatic hyperplasia without lower urinary tract symptoms; Y83.9 Surgical procedure, unspecified as the cause of abnormal reaction of the patient, or of later complication, without mention of misadventure at the time of the procedure; Y92.89 Other specified places as the place of occurrence of the external cause; Y93.9 Activity, unspecified; Y99.9 Unspecified external cause status
CPT/HCPCS: 36415; 36430; 73030-TC-RT-FY; 73060-TC-LT-FY; 73060-TC-RT-FY; 73200-TC-RT; 80048; 80053; 80061; 81003; 83036; 84439; 84443; 85025; 85027; 85610; 86850; 86900; 86901; 86922; 87635; 88300-TC; 93005; 97161-GP; 99285-25; C1713; C1776; J0131; P9038; P9058

== ENCOUNTER 2025-01-04 12:00 | Inpatient (IN) | payer OTHER, MEDICARE ==
[2025-01-04 12:19] VITALS: BMI 40.0
[2025-01-04 12:50] LABS: ABSOLUTE IMMATURE GRANULOCYTES 0.06 x10^3/uL (0.0-0.031); BASOPHILS # 0.05 x10^3/uL (0.01-0.08); EOSINOPHIL % 1.4 % (0.8-7.0); EOSINOPHILS # 0.11 x10^3/uL (0.04-0.54); HEMATOCRIT 30.1 % (40.1-51.0); HEMOGLOBIN 9.5 g/dL (13.7-17.5); MCHC 31.6 g/dl (32.3-36.5); MEAN CELL VOLUME 88.5 fl (79.0-92.2); MEAN PLT VOLUME 10.1 fl (9.4-12.4); MONOCYTE # 0.56 x10^3/uL (0.30-0.82); MONOCYTE % 6.9 % (5.3-12.2); PLATELET COUNT 304 x10^3/uL (163-337); RDW 15.1 % (12.2-16.4)
[2025-01-04 13:05] LABS: INR 1.14 (0.83-1.09); PROTHROMBIN TIME (PATIENT) 12.6 SEC (9.7-13.0)
[2025-01-04 13:25] LABS: ALBUMIN 3.3 g/dl (3.4-5.0); BILIRUBIN,TOTAL 0.4 mg/dl (0.2-1); CALCIUM 8.7 mg/dl (8.5-10.1); CREATININE 0.9 mg/dl (0.6-1.3); POTASSIUM 3.8 mmol/L (3.5-5.1); TOT PROT 5.1 g/dl (6.4-8.2)
[2025-01-04] MEDS ORDERED: PREGABALIN 50 MG CAPSULE ONE (14:08)
[2025-01-04] MEDS: oxyCODONE HCL 5 MG TABLET PO ONE (14:10)
[2025-01-04] MEDS: PREGABALIN 100 MG CAPSULE PO ONE (14:10)
[2025-01-04] MEDS: oxyCODONE HCL 5 MG TABLET PO PRN (19:52)
[2025-01-04] MEDS: DULoxetine HCL 30 MG CAPSULE.DR PO SCH (22:17)
[2025-01-04] MEDS: PREGABALIN 100 MG CAPSULE PO SCH (22:17)
[2025-01-04] MEDS: ZOLPIDEM TARTRATE 5 MG TABLET PO PRN (22:18)
[2025-01-05 07:58] LABS: ABSOLUTE IMMATURE GRANULOCYTES 0.03 x10^3/uL (0.0-0.031); BASOPHILS # 0.04 x10^3/uL (0.01-0.08); EOSINOPHIL % 5.9 % (0.8-7.0); EOSINOPHILS # 0.36 x10^3/uL (0.04-0.54); HEMATOCRIT 30.5 % (40.1-51.0); HEMOGLOBIN 9.6 g/dL (13.7-17.5); MCHC 31.5 g/dl (32.3-36.5); MEAN CELL VOLUME 88.2 fl (79.0-92.2); MEAN PLT VOLUME 10.5 fl (9.4-12.4); MONOCYTE # 0.76 x10^3/uL (0.30-0.82); MONOCYTE % 12.5 % (5.3-12.2); PLATELET COUNT 264 x10^3/uL (163-337); RDW 15.6 % (12.2-16.4)
[2025-01-05 08:14] LABS: ALBUMIN 3.2 g/dl (3.4-5.0); BILIRUBIN,TOTAL 0.6 mg/dl (0.2-1); CALCIUM 8.6 mg/dl (8.5-10.1); CREATININE 0.9 mg/dl (0.6-1.3); POTASSIUM 3.8 mmol/L (3.5-5.1); TOT PROT 4.8 g/dl (6.4-8.2)
[2025-01-05] MEDS ORDERED: MIDAZOLAM HCL 2 MG/2 ML SINGLE DOSE VIAL ONE (11:35)
[2025-01-05] MEDS ORDERED: LIDOCAINE HCL/PF 2% SDV 5ML VIAL ONE (11:37)
[2025-01-05] MEDS ORDERED: BUPIVACAINE LIPOSOME/PF (EXPAREL) 266 MG/20 ML VIAL ONE (11:42)
[2025-01-05] MEDS ORDERED: BUPIVACAINE HCL/PF 0.5% (5MG/ML) 10 ML VIAL ONE (11:42)
[2025-01-05] MEDS ORDERED: TRANEXAMIC ACID 1000 MG/10 ML VIAL ONE ×2 (11:49→13:18)
[2025-01-05] MEDS ORDERED: CLINDAMYCIN 600MG PREMIX IVPB 600 MG/50 ML BAG IVPB ONE ×2 (12:59)
[2025-01-05] MEDS ORDERED: ETOMIDATE 20 MG/10 ML VIAL IVPUSH ONE (13:11)
[2025-01-05] MEDS ORDERED: METOCLOPRAMIDE HCL INJECTION 10 MG/2 ML VIAL ONE (13:18)
[2025-01-05] MEDS ORDERED: ONDANSETRON 4 MG/2 ML VIAL ONE (13:18)
[2025-01-05] MEDS ORDERED: DEXAMETHASONE SOD PHOSPHATE 4 MG/1 ML VIAL ONE (13:18)
[2025-01-05] MEDS ORDERED: PHENYLEPHRINE HCL 10 MG/1 ML SINGLE DOSE VIAL ONE (13:31)
[2025-01-05] MEDS ORDERED: ROCURONIUM BROMIDE 50 MG/5 ML SYRINGE ONE ×2 (13:47→13:48)
[2025-01-05] MEDS ORDERED: SUGAMMADEX SODIUM 200 MG/2 ML VIAL ONE ×3 (15:14→15:15)
[2025-01-05 16:50] LABS: HEMATOCRIT 31.7 % (40.1-51.0); MCHC 31.5 g/dl (32.3-36.5); MEAN CELL VOLUME 86.6 fl (79.0-92.2); MEAN PLT VOLUME 9.9 fl (9.4-12.4); PLATELET COUNT 276 x10^3/uL (163-337); RDW 15.5 % (12.2-16.4)
[2025-01-05] MEDS ORDERED: ONDANSETRON 4 MG/2 ML VIAL IVPUSH PRN (17:26)
[2025-01-05] MEDS ORDERED: ACETAMINOPHEN 500 MG TABLET (FP) PO PRN (17:26)
[2025-01-05] MEDS ORDERED: PATIENT'S OWN MEDICATION (NON-FORMULARY) (Oxycodone Hcl [Oxycodone Hcl] 10 MG Tablet) PO PRN (17:26)
[2025-01-05] MEDS ORDERED: MAG HYDROX/AL HYDROX/SIMETH 30 ML UNIT-DOSE CUP PO PRN (17:26)
[2025-01-05] MEDS ORDERED: ZOLPIDEM TARTRATE 5 MG TABLET PO PRN (17:26)
[2025-01-05] MEDS: oxyCODONE HCL 5 MG TABLET PO PRN (18:23)
[2025-01-05] MEDS: LACTATED RINGERS SOLUTION 1,000 ML IV SCH ×3 (20:07→22:37)
[2025-01-05] MEDS ORDERED: GABAPENTIN 300 MG CAPSULE PO SCH ×2 (22:00)
[2025-01-05] MEDS ORDERED: PREGABALIN 200 MG PO SCH (22:00)
[2025-01-05] MEDS ORDERED: DULOXETINE HCL 30 MG PO SCH (22:00)
[2025-01-05] MEDS ORDERED: PATIENT'S OWN MEDICATION (NON-FORMULARY) (Zolpidem Tartrate [Ambien] 10 MG Tablet) PO SCH (22:00)
[2025-01-05] MEDS ORDERED: CLINDAMYCIN 600MG PREMIX IVPB 600 MG/50 ML BAG IVPB SCH (22:00)
[2025-01-05] MEDS: ATORVASTATIN CA 40 MG TABLET (FP) PO SCH (22:24)
[2025-01-05] MEDS: CLINDAMYCIN 900 MG PREMIX IVPB 900 MG/50 ML BAG IVPB SCH (22:24)
[2025-01-05] MEDS: PREGABALIN 100 MG CAPSULE PO SCH (22:25)
[2025-01-05] MEDS: DULoxetine HCL 30 MG CAPSULE.DR PO SCH (22:25)
[2025-01-05] MEDS: SENNOSIDES/DOCUSATE COMBO (SENNA PLUS) TABLET (UD) PO SCH (22:31)
[2025-01-06 08:27] LABS: HEMATOCRIT 28.7 % (40.1-51.0); HEMOGLOBIN 9.1 g/dL (13.7-17.5); MCHC 31.7 g/dl (32.3-36.5); MEAN CELL VOLUME 87.8 fl (79.0-92.2); MEAN PLT VOLUME 10.8 fl (9.4-12.4); PLATELET COUNT 267 x10^3/uL (163-337); RDW 15.6 % (12.2-16.4)
[2025-01-06 09:00] LABS: CALCIUM 8.5 mg/dl (8.5-10.1); CREATININE 0.8 mg/dl (0.6-1.3); POTASSIUM 3.9 mmol/L (3.5-5.1)
[2025-01-06] MEDS: ALLOPURINOL 300 MG TABLET (FP) PO SCH (09:51)
[2025-01-06] MEDS: PANTOPRAZOLE 40 MG TABLET PO SCH (09:52)
[2025-01-06] MEDS: FUROSEMIDE 40 MG TABLET (FP) PO SCH (09:52)
[2025-01-06] MEDS: POTASSIUM CHLORIDE TABS 10 MEQ TABLET.ER (FP) PO SCH (09:53)
[2025-01-06] MEDS: ASCORBIC ACID 500 MG TABLET (FP) PO SCH (09:53)
[2025-01-06] MEDS: CHOLECALCIFEROL (VIT D3) 1,000 UNIT (25 MCG) TABLET PO SCH (09:53)
[2025-01-06] MEDS: ASPIRIN COATED 81 MG TABLET.EC PO SCH (09:53)
[2025-01-06] MEDS: MULTIVITAMINS (DAILY MVI) TABLET (FP) PO SCH (09:53)
[2025-01-06] MEDS: ZINC SULFATE 220 MG CAPSULE (FP) PO SCH (09:54)
[2025-01-06] MEDS ORDERED: ASPIRIN COATED 81 MG TABLET.EC PO SCH (10:00)
[2025-01-06] MEDS ORDERED: PATIENT'S OWN MEDICATION (NON-FORMULARY) (Multivitamin [Multivitamin] 1 EACH Tablet) PO SCH (10:00)
[2025-01-06] MEDS: DOXYCYCLINE HYCLATE 100 MG CAPSULE PO SCH (18:22)
[2025-01-07 06:01] VITALS: RESP 17
[2025-01-07 10:12] VITALS: BP 112/58; PULSE 78; TEMP 98.1
== END 2025-01-07 14:40 | DRG 483 ==
LOC: FER 12:00 → FM/S 12:54 → UNDOADMOB 12:54 → FM/S 13:10 → FASUSAT 01-05 10:02 → OBSVTOIN 01-05 10:46 → INTOOBSV 01-05 10:46 → FM/S 01-05 10:46 → SUATTDRO 01-05 18:05 → FASUSAT 01-05 18:05 → FM/S 01-05 18:07 → FASUSAT 01-05 18:07 → FM/S 01-07 09:41 → FASUSAT 01-07 09:41 → UNDOADMIN 01-07 09:43 → FM/S 01-07 09:43
PROC: 0RRJ00Z Replacement of Right Shoulder Joint with Reverse Ball and Socket Synthetic Substitute, Open Approach (ICD-10-PCS; 2025-01-05)
PROC: 0RPJ0JZ Removal of Synthetic Substitute from Right Shoulder Joint, Open Approach (ICD-10-PCS; principal; 2025-01-05 13:58)
DX: T84.028A Dislocation of other internal joint prosthesis, initial encounter (principal); I50.32 Chronic diastolic (congestive) heart failure; Z68.41 Body mass index [BMI] 40.0-44.9, adult; I10 Essential (primary) hypertension; E78.5 Hyperlipidemia, unspecified; I11.0 Hypertensive heart disease with heart failure; K21.9 Gastro-esophageal reflux disease without esophagitis; F32.A Depression, unspecified; G89.29 Other chronic pain; E66.01 Morbid (severe) obesity due to excess calories; Y83.8 Other surgical procedures as the cause of abnormal reaction of the patient, or of later complication, without mention of misadventure at the time of the procedure
CPT/HCPCS: 36415; 36430; 73030-TC-RT-FY; 80048; 80053; 85025; 85027; 85610; 86850; 86900; 86901; 86922; 87635; 93005; 94760; 97162-GP; 99285-25; C1713; C1776; J0666; P9038; P9058